=== PATIENT | female | born 1990 | race Two or more races ===

== ENCOUNTER 2019-07-05 19:37 | Emergency (ER) | payer OTHER ==
[~2019-07-05] VITALS: Ht 170.2 cm; Wt 58.1 kg
[~2019-07-05 19:37] MED LIST: CEFTIN250 MG PO; TYLENOL EXTRA500 MG PO
== END 2019-07-05 22:38 | disposition home or self-care (01) ==
LOC: ER 19:37
DX: M54.5 Low back pain (principal); B99.8 Other infectious disease; B96.0 Mycoplasma pneumoniae [M. pneumoniae] as the cause of diseases classified elsewhere

== ENCOUNTER 2019-10-22 20:08 | Emergency (ER) | payer OTHER ==
[~2019-10-22] VITALS: Ht 170.2 cm; Wt 58.5 kg
[2019-10-22] MEDS ORDERED: CLONAZEPAM0.5 MG (20:36)
[2019-10-22] MEDS ORDERED: AMBIEN5 MG (20:36)
[2019-10-22] MEDS ORDERED: WELLBUTRIN SR100 MG (20:39)
[2019-10-22] MEDS ORDERED: RESTORIL15 M1 (20:39)
== END 2019-10-22 23:39 | disposition home or self-care (01) ==
LOC: ER 20:08
DX: B34.9 Viral infection, unspecified (principal); R53.1 Weakness; T42.6X5A Adverse effect of other antiepileptic and sedative-hypnotic drugs, initial encounter; T42.4X5A Adverse effect of benzodiazepines, initial encounter; Y92.89 Other specified places as the place of occurrence of the external cause

== ENCOUNTER 2019-11-03 19:41 | Emergency (ER) | payer OTHER ==
[~2019-11-03] VITALS: Ht 170.2 cm; Wt 58.1 kg
[~2019-11-03 19:41] MED LIST changes: +AMBIEN5 MG; +CLONAZEPAM0.5 MG; +RESTORIL15 M1; +WELLBUTRIN SR100 MG
== END 2019-11-04 00:49 | disposition home or self-care (01) ==
LOC: ER 19:41
DX: M23.300 Other meniscus derangements, unspecified lateral meniscus, right knee (principal)

== ENCOUNTER 2019-11-18 16:25 | Emergency (ER) | payer OTHER ==
[~2019-11-18] VITALS: Ht 170.2 cm; Wt 56.7 kg
== END 2019-11-18 20:56 | disposition home or self-care (01) ==
LOC: ER 16:25
DX: R10.2 Pelvic and perineal pain (principal)

== ENCOUNTER 2019-11-23 21:11 | Emergency (ER) | payer OTHER ==
[~2019-11-23] VITALS: Ht 170.2 cm; Wt 54.0 kg
[2019-11-24] MEDS ORDERED: MEDROLPACK PO (00:15)
[2019-11-24] MEDS ORDERED: ZYRTEC10 MG PO (00:15)
== END 2019-11-24 00:43 | disposition home or self-care (01) ==
LOC: ER 21:11
DX: T78.49XA Other allergy, initial encounter (principal); R22.0 Localized swelling, mass and lump, head

== ENCOUNTER 2020-09-26 00:31 | Emergency (ER) | payer OTHER ==
[~2020-09-26] VITALS: Ht 170.2 cm; Wt 58.1 kg
[~2020-09-26 00:31] MED LIST changes: +MEDROLPACK PO; +ZYRTEC10 MG PO
[2020-09-26] MEDS ORDERED: VOLTAREN-XR100 MG PO (13:21)
== END 2020-09-26 14:08 | disposition home or self-care (01) ==
LOC: ER 00:31
DX: N80.0 Endometriosis of uterus (principal); N94.19 Other specified dyspareunia; R10.2 Pelvic and perineal pain; Z03.818 Encounter for observation for suspected exposure to other biological agents ruled out

== ENCOUNTER 2020-12-18 16:54 | Emergency (ER) | payer OTHER ==
[~2020-12-18] VITALS: Ht 170.2 cm; Wt 56.7 kg
[~2020-12-18 16:54] MED LIST changes: +VOLTAREN-XR100 MG PO
[2020-12-19] MEDS ORDERED: PEPCID AC20 MG PO (00:47)
[2020-12-19] MEDS ORDERED: NAPROXEN500 MG PO (00:47)
[2020-12-20] MEDS ORDERED: KETO10TA2 PO (07:31)
== END 2020-12-19 00:53 | disposition home or self-care (01) ==
LOC: ER 16:54
DX: N83.02 Follicular cyst of left ovary (principal); N83.01 Follicular cyst of right ovary; R10.2 Pelvic and perineal pain

== ENCOUNTER 2020-12-19 21:49 | Emergency (ER) | payer OTHER ==
[~2020-12-19] VITALS: Ht 170.2 cm; Wt 54.4 kg
[~2020-12-19 21:49] MED LIST changes: +NAPROXEN500 MG PO; +PEPCID AC20 MG PO
[2020-12-20] MEDS ORDERED: KETO10TA2 PO (07:31)
== END 2020-12-20 09:03 | disposition home or self-care (01) ==
LOC: ER 21:49
DX: K59.09 Other constipation (principal); N20.0 Calculus of kidney; R10.2 Pelvic and perineal pain

== ENCOUNTER 2021-01-15 08:30 | Inpatient (IN) | payer OTHER ==
[~2021-01-15] VITALS: Ht 170.2 cm; Wt 54.4 kg
[~2021-01-15 08:30] MED LIST changes: +KETO10TA2 PO
[2021-01-15] MEDS ORDERED: PERCOCET 10-321 EACH PO (10:49)
== END 2021-01-22 08:58 | disposition home or self-care (01) | DRG 743 ==
LOC: O/R 01-20 05:46 → SURH 01-20 08:30 → OB/GYN 01-20 13:44
PROVIDERS: ADMIT Obstetrics & Gynecology; ATTEND Obstetrics & Gynecology
PROC: 0DNW0ZZ Release Peritoneum, Open Approach (ICD-10-PCS; 2021-01-20)
PROC: 0UB10ZZ Excision of Left Ovary, Open Approach (ICD-10-PCS; principal; 2021-01-20 10:15)
DX: N83.02 Follicular cyst of left ovary (principal); N73.6 Female pelvic peritoneal adhesions (postinfective); N99.4 Postprocedural pelvic peritoneal adhesions; N80.3 Endometriosis of pelvic peritoneum; R10.2 Pelvic and perineal pain

== ENCOUNTER 2021-01-23 23:29 | Emergency (ER) | payer OTHER ==
[~2021-01-23] VITALS: Ht 170.2 cm; Wt 54.4 kg
[~2021-01-23 23:29] MED LIST changes: +PERCOCET 10-321 EACH PO
[2021-01-24] MEDS ORDERED: KETO10TA2 PO (07:44)
[2021-01-24] MEDS ORDERED: SURFAK240 M1 PO (07:44)
== END 2021-01-24 07:45 | disposition home or self-care (01) ==
LOC: ER 23:29
DX: T81.89XA Other complications of procedures, not elsewhere classified, initial encounter (principal); G89.18 Other acute postprocedural pain; R10.2 Pelvic and perineal pain; K68.11 Postprocedural retroperitoneal abscess

== ENCOUNTER 2021-04-07 11:12 | Outpatient (CLI) | payer OTHER ==
[~2021-04-07 11:12] MED LIST changes: +SURFAK240 M1 PO
== END 2021-04-07 11:20 | disposition home or self-care (01) ==
LOC: MAMO-SONO 11:12
PROVIDERS: ATTEND Obstetrics & Gynecology
DX: N64.51 Induration of breast (principal)

== ENCOUNTER 2021-10-06 15:28 | Outpatient (CLI) | payer OTHER | END 2021-10-06 15:32 | disposition home or self-care (01) | LOC: SONOGRAMA 15:28 | PROVIDERS: ATTEND Obstetrics & Gynecology | DX: N60.11 Diffuse cystic mastopathy of right breast (principal); N60.12 Diffuse cystic mastopathy of left breast; N64.51 Induration of breast; N83.291 Other ovarian cyst, right side ==

== ENCOUNTER 2022-01-06 16:11 | Emergency (ER) | payer OTHER ==
[~2022-01-06] VITALS: Ht 167.6 cm; Wt 53.1 kg
[2022-01-06] MEDS ORDERED: OSEL75CA PO (18:33)
[2022-01-06] MEDS ORDERED: TUSNEL CAPLET1 EACH PO (18:33)
[2022-01-06] MEDS ORDERED: DOLOGEN CAPLET1 EACH PO (18:33)
[2022-01-06] MEDS ORDERED: ALBUTEROL2.5 MG/3 M IH (18:33)
== END 2022-01-06 19:57 | disposition home or self-care (01) ==
LOC: ER 16:11
DX: J10.1 Influenza due to other identified influenza virus with other respiratory manifestations (principal); Z20.822 Contact with and (suspected) exposure to COVID-19

== ENCOUNTER 2022-02-06 16:51 | Emergency (ER) | payer OTHER ==
[~2022-02-06] VITALS: Ht 170.2 cm; Wt 58.1 kg
[~2022-02-06 16:51] MED LIST changes: +ALBUTEROL2.5 MG/3 M IH; +DOLOGEN CAPLET1 EACH PO; +OSEL75CA PO; +TUSNEL CAPLET1 EACH PO
[2022-02-06] MEDS ORDERED: DOLOGEN 325-11 EACH PO (21:07)
[2022-02-06] MEDS ORDERED: MEDROLPACK PO (21:07)
== END 2022-02-06 21:14 | disposition home or self-care (01) ==
LOC: ER 16:51
DX: G43.809 Other migraine, not intractable, without status migrainosus (principal); R53.83 Other fatigue; R53.81 Other malaise; Z20.822 Contact with and (suspected) exposure to COVID-19